=== PATIENT | female | born 1955 | race Caucasian/White ===

== ENCOUNTER 2018-10-14 11:34 | Emergency (ER) | payer SELFPAY ==
[~2018-10-14] VITALS: Ht 165.1 cm; Wt 80.0 kg
[~2018-10-14 11:34] MED LIST: OLME5TAB4 PO; RESTOP4 OP; VIT D 1000 UNIT
[2018-10-14 11:37] VITALS: Ht 165.1 cm; Wt 80.0 kg
[2018-10-14] MEDS ORDERED: KETOROLAC 15 MG INJ IV STA (13:20)
--- NOTE | 2018-10-14 13:29 | ERD ---
ER Documentation Chief Complaint Chief Complaint LT ARM PAIN S/P CABINET FELL @ WORK HPI This is a 63-year-old female presenting with pain to the left forearm after a trauma. The patient was reportedly opening a drawer set when it fell forward. She caught her finger in the drawer and it hit her left forearm. This happened approximately 3 days ago. Since then, she has had waxing and waning moderate sore aching pain to the left forearm since then. The patient reports that she has intermittently dropped things from her hand secondary to intermittent shooting type pains. The patient has been taking naproxen at home to help with her pain with some relief. The patient is able to range all joints fully. Her sensation and strength are normal at this time. Her pulses are normal. Her hand is not been cold or blue or pale. The patient denies feeling sick recently. The patient denies fever or chills. The patient has had no headache or vision changes. The patient does not endorse neck or back pain. The patient denies lightheadedness or dizziness. The patient has had no chest pain or trouble breathing. The patient denies nausea or vomiting. The patient denies abdominal pain. The patient denies changes to bowel movements or urination. The patient has had no focal deficits. The patient has had no weakness or numbness or tingling to the face or extremities. ROS All systems reviewed and are negative except as per history of present illness. Medications Home Meds Reported Medications Cyclosporine* (Restasis* Oph) 32 Ea Droperette, 32 EA OP BID 08/11/12 [Vit. D 1,000 Units] No Conflict Check, DAILY 08/11/12 Olmesartan Medoxomil (Benicar) 5 Mg Tablet, 2.5 MG PO DAILY 08/11/12 Allergies Allergies: Coded Allergies: Cefaclor (Verified Allergy, Mild, NAUSEA, 08/11/12) amoxicillin trihydrate (Verified Allergy, Mild, STOMACH UPSET, 08/11/12) hydromorphone HCl (Verified Allergy, Mild, STOMACH UPSET, 08/11/12) potassium clavulanate (Verified Allergy, Mild, STOMACH UPSET, 08/11/12) PMhx/Soc History of Surgery: Yes (APPENDECTOMY, EYE SX. BREAST AUGMENTATION, EPIDURAL INJ., ROTATOR CUFF SX.) Anesthesia Reaction: Yes (DIFFICULTY WAKING UP) Hx Neurological Disorder: No Hx Respiratory Disorders: No Hx Cardiac Disorders: No Hx Psychiatric Problems: No Hx Miscellaneous Medical Probl: Yes (HTN) Hx Alcohol Use: No Hx Substance Use: No Hx Tobacco Use: No Smoking Status: Never smoker FmHx Family History: No diabetes Physical Exam Vitals Vital Signs Date Temp Pulse Resp B/P (MAP) Pulse Ox O2 O2 Flow FiO2 Time Delivery Rate 10/14/18 98.1 89 18 138/99 100 11:37 (112) Physical Exam Const: No acute distress Head: Atraumatic Eyes: Normal Conjunctiva ENT: Normal External Ears, Nose and Mouth. Neck: Full range of motion. No meningismus. Resp: Clear to auscultation bilaterally Cardio: Regular rate and rhythm, no murmurs Abd: Soft, non tender, non distended. Normal bowel sounds Skin: No petechiae or rashes Back: No midline or flank tenderness Ext: No cyanosis, or edema. Full range of motion, strength and sensation to the left upper extremity. No deformities noted. Neur: Awake and alert. No obvious focal deficits. Psych: Normal Mood and Affect Procedures/MDM MDM The patient presents for left forearm pain after a trauma 3 days ago. There is no deformity. I have very low suspicion for fracture dislocation. I did offer the patient an x-ray of the wrist and forearm to evaluate further, but she declined. The patient has full strength and sensation. I do not see any evidence of acute neuropathy, but if there is some nerve irritation related to the recent trauma, this could be the etiology of her symptoms. I do not see any evidence of infection. TREATMENT/DISPOSITION Toradol and Tylenol in the emergency department. The patient was also ordered a wrist splint to help with support. DISCHARGE Upon reevaluation of the patient, symptoms have improved. No emergent diagnoses were identified. At this time, I feel that the patient stable for discharge. The patient was instructed to follow-up with a primary care physician in 1-3 days. The patient will be given strict precautions with which to return to the emergency department. Prescriptions: None The patient's blood pressure was elevated at greater than 120/80 while in the emergency department. The patient was otherwise stable with no evidence of hypertensive urgency or emergency. The patient does not require admission for blood pressure control. I have discussed with the patient the risks of hypertension. I have instructed the patient to return to the ER for any new or worsening symptoms including chest pain, shortness of breath, headache, blurred vision, confusion, nausea, vomiting or LOC. I have advised the patient to follow up with the primary care physician for outpatient monitoring and treatment for hypertension in 1-3 days. Disclaimer: Inadvertent spelling and grammatical errors are likely due to EHR/dictation software use and do not reflect on the overall quality of patient care. Note that the electronic time recorded on this note does not necessarily reflect the actual time of the patient encounter. Departure Diagnosis: Primary Impression: Injury of left forearm Encounter type: initial encounter Qualified Codes: S59.912A - Unspecified injury of left forearm, initial encounter Condition: Stable Patient Instructions: Wrist Splint, Velcro, Wrist Sprain Additional Instructions: Thank you for for coming to [facility] for your care today. Please ask your nurse or provider if you have questions about your care today and do not leave until all your questions have been answered. Please use any medications given as directed and follow-up with your doctor (or the doctor you were referred to) in the next 1-3 days. If you do not have a primary care doctor you may follow up at the [facility] or [facility] (listed below). You may also use motrin and tylenol as needed for fever and/or pain unless instructed otherwise by your provider or nurse. Indications for more urgent follow-up have been discussed, but you may return to the Emergency Department at ANY time for any worrisome or worsening symptoms. If you have abdominal pain, please know that no test or exam you received is per fect and you should follow up within 8 hours for continued pain. If you had any imaging studies today, such as an X-Ray or CT Scan, these studies will be reviewed later by a radiologist. You will be called if there are important findings that were not identified today, so make sure the contact information you provided at registration is correct. If you received any narcotic pain control medicine today, such as Vicodin, Morphine or Dilaudid, your coordination and judgment may be affected for a number of hours. Please do not drive or operate heavy machinery, and you may want someone to assist you at home. If you were given a prescription for narcotic medication, be aware that it is very addictive- use sparingly and only if necessary. PLEASE SEEK FURTHER EVALUATION AND MANAGEMENT AT YOUR DOCTORS OFFICE WITHIN THE NEXT 1-3 DAYS. IT IS YOUR RESPONSIBILITY TO MAKE AN APPOINTMENT FOR FOLOW-UP CARE. IF YOU HAVE A PRIMARY DOCTOR, PLEASE CALL THEIR OFFICE TO SCHEDULE AN APPOINTMENT FOR FOLLOW UP. IF YOU DO NOT HAVE A PRIMARY DOCTOR YOU CAN CALL OUR PHYSICIAN REFERRAL HOTLINE AT IF YOU CAN NOT AFFORD TO SEE A PHYSICIAN YOU CAN CHOSE FROM THE FOLLOWING FORMERLY [facility], [facility]–1983 CLINICS: [facility] [address] [facility] [address] [facility]. [facility] [address] [facility] [address] [facility] [address] [facility] [facility]. [address] SADI SANCHEZ MD Oct 14, 2018 13:29
[2018-10-14] MEDS ORDERED: ACETAMINOPHEN 325 MG TAB PO ONE (13:30)
[2018-10-14 13:52] VITALS: BP 140/76; PULSE 66; RESP 18
== END 2018-10-14 13:53 | disposition home or self-care (01) ==
LOC: FTE 11:34
DX: S59.912A Unspecified injury of left forearm, initial encounter (principal); I10 Essential (primary) hypertension; W20.8XXA Other cause of strike by thrown, projected or falling object, initial encounter; Y92.89 Other specified places as the place of occurrence of the external cause
CPT/HCPCS: J1885